=== PATIENT | male | born 1990 | race Caucasian/White ===

== ENCOUNTER 2017-08-10 06:00 | Emergency (ER) | payer OTHER ==
[2017-08-10] MEDS ORDERED: ONDANSETRON (ODT) 4 MG TAB ODT (07:01)
[2017-08-10] MEDS ORDERED: LIDOCAINE/MYLANTA 40 ML BTL PO (07:30)
== END 2017-08-10 07:49 | disposition left against medical advice (07) ==
LOC: FTE 06:00
DX: R07.89 Other chest pain (principal); R11.0 Nausea; I10 Essential (primary) hypertension; E11.9 Type 2 diabetes mellitus without complications
CPT/HCPCS: 93005; 99283-25

== ENCOUNTER 2018-05-09 08:57 | Emergency (ER) | payer OTHER | END 2018-05-09 11:35 | disposition left against medical advice (07) | LOC: FTE 08:57 | DX: J02.9 Acute pharyngitis, unspecified (principal); I10 Essential (primary) hypertension; E11.9 Type 2 diabetes mellitus without complications; F45.8 Other somatoform disorders | CPT/HCPCS: 70490; 99284-25 ==

== ENCOUNTER 2018-06-03 08:43 | Emergency (ER) | payer OTHER | END 2018-06-03 10:18 | disposition home or self-care (01) | LOC: FTE 08:43 | DX: Z77.21 Contact with and (suspected) exposure to potentially hazardous body fluids (principal) | CPT/HCPCS: 99281; Z7502 ==